=== PATIENT | male | born 1980 | race Caucasian/White ===

== ENCOUNTER 2024-07-09 12:41 | Emergency (ER) | payer SELFPAY ==
[~2024-07-09] VITALS: Ht 177.8 cm; Wt 111.1 kg
[2024-07-09 12:49] VITALS: O2SAT 95
[2024-07-09] MEDS: IV NORMAL SALINE 1000 ML BAG IV ONE (13:34)
[2024-07-09 13:48] LABS: ALBUMIN 3.5 g/dL (3.4-5.0); BILIRUBIN,DIRECT 0.4 mg/dL (0.0-0.2); BILIRUBIN,TOTAL 1.7 mg/dL (0.2-1.0); CALCIUM 7.8 mg/dL (8.5-10.1); CREATININE 0.7 mg/dL (0.6-1.3); POTASSIUM 3.3 mmol/L (3.5-5.1); TOTAL PROTEIN, SERUM 7.4 g/dL (6.4-8.2)
[2024-07-09 13:57] LABS: BASOPHILS % (AUTO) 0.5 % (0.0-2.0); EOSINOPHILS % (AUTO) 0.3 % (0.0-7.0); HEMATOCRIT 45.8 % (36.7-47.1); HEMOGLOBIN 15.5 g/dL (12.5-16.3); LYMPHOCYTES # (AUTO) 1.6 K/uL (0.8-4.8); LYMPHOCYTES % (AUTO) 23.4 % (20.5-51.5); MEAN CORPUSCULAR HEMOGLOBIN 30.7 uug (23.8-33.4); MEAN CORPUSCULAR HGB CONC 34 g/dL (32.5-36.3); MEAN CORPUSCULAR VOLUME 90.8 fL (73.0-96.2); MONOCYTES # (AUTO) 0.6 K/uL (0.1-1.30); MONOCYTES % (AUTO) 8.7 % (0.0-11.0); NEUTROPHILS # (AUTO) 4.7 K/uL (1.8-8.9); NEUTROPHILS % (AUTO) 67.1 % (38.5-71.5); PLATELET COUNT (AUTO) 114 K/uL (152-348); RED BLOOD CELL COUNT(AUTO) 5.05 MIL/uL (4.06-5.63); RED CELL DISTRIBUTION WIDTH 14.6 % (12.1-16.2)
== END 2024-07-09 16:07 | disposition home or self-care (01) ==
LOC: ER 12:41
DX: R10.9 Unspecified abdominal pain (principal); K42.9 Umbilical hernia without obstruction or gangrene; F10.129 Alcohol abuse with intoxication, unspecified; Y90.0 Blood alcohol level of less than 20 mg/100 ml
CPT/HCPCS: 80076; 80048; 85025; 36415; 99283; 96360; 80320; J7040; A4606; A4663; G0480